=== PATIENT | female | born 1990 | race African-American/Black ===

== ENCOUNTER 2016-10-17 20:02 | Emergency (ER) | payer OTHER ==
--- NOTE | 2016-10-17 20:15 | ED PSYCHIATRIC COMPLAINT ---
History of Present Illness General Chief Complaint: Psychiatric Related Complaint Stated Complaint: BIBA FOR +SI Source: patient, EMS Exam Limitations: clinical condition Vital Signs & Intake/Output Vital Signs & Intake/Output Vital Signs Date Time Temp Pulse Resp B/P Pulse O2 O2 Flow FiO2 Ox Delivery Rate 10/18 0839 98.1 78 18 124/74 99 Room Air 10/17 2336 98.0 78 18 120/70 98 Room Air 10/17 2142 Room Air 10/17 2014 98.0 84 16 134/76 Allergies Coded Allergies: No Known Allergies (02/21/16) Reconcile Medications Gabapentin 400 MG CAPSULE 1 CAP PO TID ANXIETY (Reported) Lurasidone HCl (Latuda) 40 MG TABLET 1 TAB PO QPM BIPOLAR (Reported) Triage Nurses Notes Reviewed? yes Onset: Abrupt Duration: hour(s): Timing: single episode today Severity: moderate Associated Symptoms: anxiety, suicidal ideation HPI: 26-year-old woman history of bipolar disorder presents with suicidality and increased agitation. Per the medics, she texted an emergency crisis line. The contents of the taxed was suicidal in nature. 911 was called. The police arrived. They found her agitated and tearful. She attempted to flee. The police chased after her. The medics arrived and brought her to the emergency department. Upon arrival to the emergency department, she was agitated and tearful made overtures to flee. She denies drug use. She states that she has been taking her psychiatric medication. She declines to share what may have precipitated her outreach. (MERRILL GARCIA,THOM Avitia) Past History Travel History Traveled to [place] past 21 day No Medical History Any Pertinent Medical History? see below for history Psychiatric: bipolar disease Surgical History Surgical History: none Psychosocial History What is your primary language Uzbek Family History Hx Contributory? No (MERRILL GARCIA,THOM Avitia) Review of Systems Review of Systems Constitutional: Reports: no symptoms. EENTM: Reports: no symptoms. Respiratory: Reports: no symptoms. Cardiovascular: Reports: no symptoms. GI: Reports: no symptoms. Genitourinary: Reports: no symptoms. Musculoskeletal: Reports: no symptoms. Skin: Reports: no symptoms. Neurological/Psychological: Reports: no symptoms. Hematologic/Endocrine: Reports: no symptoms. Immunologic/Allergic: Reports: no symptoms. All Other Systems: Reviewed and Negative (MERRILL GARCIA,THOM Avitia) Physical Exam Physical Exam General Appearance: well developed/nourished, mild distress Head: atraumatic Eyes: Bilateral: PERRL, EOMI. Ears, Nose, Throat: normal pharynx, normal ENT inspection, hearing grossly normal Neck: normal inspection, supple Respiratory: normal breath sounds Cardiovascular: regular rate/rhythm Gastrointestinal: soft, non-tender Extremities: normal range of motion Neurological/Psychiatric: agitated, alert, anxious, oriented x 3 Appearance/Memory/Insight: disheveled Behavoir/Eye Contact/Speech: avoids eye contact, uncooperative Thoughts/Hallucinations: flight of ideas, tearful, cowering in corner Skin: intact, normal color, warm/dry SAD PERSONS SAD PERSONS Response Value Depression/Hopelessness? yes 2 Excessive Ethanol/Drug Use? yes 1 Rational Thinking Loss? yes 2 Social Support? has support 0 Total 5 SAD PERSONS Done? yes (MERRILL GARCIA,THOM Avitia) Progress Differential Diagnosis: drug intoxication, electrolyte abnormality, bipolar vs suicidality Plan of Care: Orders Procedure Date/time Status Regular Diet 10/18 B Active Continuous Observation Monitor 10/18 1900 Active Continuous Observation Monitor 10/18 1500 Active Continuous Observation Monitor 10/18 1100 Active Continuous Observation Monitor 10/18 0700 Active Restraint- Discontinue 10/18 0015 Active Restraint- Behavioral (Order) 10/17 2233 Active Restraint- Behavioral (Order) 10/17 2232 Complete ED CRISIS PSYCH CONSULT 10/17 2200 Active Continuous Observation Monitor 10/17 2014 Active URINE DRUGS OF ABUSE 10/17 2006 Complete URINE 10/17 2006 Complete ETHANOL 10/17 2006 Complete CBC WITHOUT DIFFERENTIAL 10/17 2006 Complete BASIC METABOLIC PANEL 10/17 2006 Complete Laboratory Tests 10/17/162038: Serum Alcohol < 10.0 10/17/162038: Anion Gap 12, Estimated GFR > 60, BUN/Creatinine Ratio 11.7, Glucose 102 H, Calcium 10.0, CBC w Diff NO MAN DIFF REQ, RBC 5.14, MCV 82.2, MCH 26.5 L, RDW 14.3, MPV 7.1 L, Gran % 47.8, Lymphocytes % 42.6, Monocytes % 4.3, Eosinophils % 4.6, Basophils % 0.7, Absolute Granulocytes 3.3, Absolute Lymphocytes 2.9, Absolute Monocytes 0.3, Absolute Eosinophils 0.3, Absolute Basophils 0, PUBS MCHC 32.2 L, Urine Opiates Screen < 100.00, Methadone Screen < 40, Barbiturate Screen < 60, Ur Phencyclidine Scrn < 6.00, Amphetamines Screen < 100, U Benzodiazepines Scrn < 85, Urine Cocaine Screen < 50, Urine Cannabis Screen > 80.00 H, Urine Test NEGATIVE Hand-Off Endorsed To: DEBBIE LEON MD Endorsed Time: 0700 Pending: consult (MERRILL GARCIA,THOM Avitia) Comments: Cleared by psychiatry for discharge (DEBBIE LEON MD) Departure Departure Clinical Impression Primary Impression: Bipolar disorder Referrals: CSOTT AUGUSTINE,DICK STERLING (PCP/Family) Comments 10/18/16, 22:50... pt evaluated by brayden... She had closed the door and rigged the sheet to make it difficult to open. She had torn the sheet to make a rope. She became agitated and belligerent. Pt placed in 4 pt restraints, given haldol 5mg im, ativan 2mg im. pt to be re-evaluated in the AM. (MERRILL GARCIA,THOM Avitia) Departure Time of Disposition: 1220 Disposition: HOME OR SELF CARE Condition: Stable Departure Forms: General Discharge Information (DEBBIE LEON MD)
[2016-10-17 20:51] LABS: ABSOLUTE BASOPHIL COUNT 0 /CUMM (0.0-0.2); ABSOLUTE EOSINOPHIL COUNT 0.3 /CUMM (0.0-0.7); ABSOLUTE GRANULOCYTE CT 3.3 /CUMM (1.4-6.5); ABSOLUTE LYMPH COUNT 2.9 /CUMM (1.2-3.4); ABSOLUTE MONOCYTE COUNT 0.3 /CUMM (0.10-0.60); BASOPHIL % 0.7 % (0.0-2.0); EOSINOPHIL % 4.6 % (0-5); GRANULOCYTE % 47.8 % (42.2-75.2); HEMATOCRIT 42.2 % (37-47); MEAN CORPUSCULAR HGB 26.5 PG (27.0-31.0); MEAN CORPUSCULAR HGB CONC 32.2 G/DL (33.0-37.0); MEAN CORPUSCULAR VOLUME 82.2 FL (81.0-99.0); MEAN PLATELET VOLUME 7.1 FL (7.4-10.4); PLATELET COUNT 458 /CUMM (130-400); RBC DISTRIBUTION WIDTH 14.3 % (11.5-14.5); RED BLOOD CELL CT 5.14 /CUMM (4.20-5.40); WHITE BLOOD CELL COUNT 6.9 /CUMM (4.8-10.8)
[2016-10-17] MEDS ORDERED: LATUDA40 M1 PO (21:41)
[2016-10-17] MEDS ORDERED: GABAPENTIN400 M2 PO (21:42)
--- NOTE | 2016-10-18 11:23 | ED PSYCH CRISIS CONSULTATION ---
Crisis Consult Basic Assessment Date of Consult: 10/18/16 Responsible Person/Accompanied By: self Insurance Authorization: Insurance #1: Insurance name: MEGAN Colon C&A Phone number: Policy number: [id number] Group number: Authorization number: ED Provider: Patient's ED Provider: MERRILL GARCIA,THOM Avitia Primary Care Physician: Patient's PCP: DICK SEVERINO PCP's Current Psychiatrist: RAO Hardin PT Chief Complaint: Psychiatric Related Complaint Patient's Quote: "I'm not suicidal. If I wanted to kill myeslf I would have." Present Illness: Pt is a 26yo female who was brought to the ED on a PEER after she "contacted a crisis line saying that she wanted to harm herself by taking pills because of domestic problems." per PEER. When police arrived to the home, pt attempted to run and she was brought to the ED. Crisis attempted to evaluate her last night, but pt was uncooperative. She tore up the bed sheets and had tied them to the door and bed and to her wrist to make it more difficult to open the door. Pt had also tied up the torn sheets into a cob wed shape and has also his some under the bed. Pt became agitated and attempted to elope from the ED and required sedation and restraints. Upon Crisis eval this morning, pt was sitting on the floor in the corner of her room with her blankets wrapped around her head and body. When asked why she was there , she stated that it was more comfortable than the bed. Pt admits that she has been feeling depressed, but denies any SI or hx of any attempts. "If I wanted to kill myself, I could have used the sheets to do that yesterday, but I was just being dramatic and doing arts and crafts." Pt reports that she does have a hx of "scratching herself sometimes" but denies that when she does this that it is a suicidal gesture, but rather for coping with her depression. Pt reports that she last "scratched" her self "a few weeks ago". Pt also reports poor appetite. Pt admits that she did contact the crisis line last night because she she has been overwhelmed and unable to sleep and wanted to find out if she could take extra medication to try to help her sleep. Pt denied and current domestic problems rather she says she has always had trouble sleeping. Pt expresses that he is very supportive. Pt is currently in [facility] pt tx and is treated for Bipolar by Jay kumar APRN and is currently on Gabapentin and latuda. Prior to [facility] Out [facility], She attended [employer]. She was initially referred to [facility] [employer] by Barb Guerrero APRN who was her previous provider. Pt denies any hx of inpt psych tx. Pt declines offer of inpt psych tx and request to discharge home. Pt's utox is positive for marijuana and pt is reportedly on Medical marijuana". Pt reportedly uses marijuana 1-3 times daily. She reported that her 1st use was age 11. [facility] is unable to collaborate with Out pt provider as it is currently Thursday and they are closed for the weekend. [facility] did speak with Pt's Stoney Barfield . He denies having any concerns for pt's safety. He explains that pt does have mood swings due to her bipolar and has been more overwhelmed as she had not slept the past 48 hours prior to the ED admit as she worked 2 overnight shifts in a row and has to watch their children during the days while he was at work. He verifies that pt did reach out to him and the crisis hotline because she wanted to know if it was safe to take extra medication so that she could get some sleep. He explains that she text the hotline, and when they called her she did not answer, because she became anxious and that's why they sent the police, which made her even more anxious and so she ran. He request pt to be discharged so that he can pick her up and take her home to rest. He stated that he will be with her and make sure she is safe and if there are any concerns he will bring her back to the ED. "Believe me. If I was afraid that she was unsafe I would ask you to admit her, but she just need to come home and rest." Case reviewed with Dr. Yañez of psychiatry who approved pt to discharge home to continue her follow-up in [facility] tx. Patient's Address: [address] [place] [address] Other Phone Number: Who Do You Live With? Family Family/Informants Interviewed: Allergies - Coded Allergies: No Known Allergies (02/21/16) Current Medications - Scheduled Medications Gabapentin 400 MG CAPSULE 1 CAP PO TID ANXIETY #90 (Reported) Entered as Reported by ALY COOL on 10/17/162141 Lurasidone HCl (Latuda) 40 MG TABLET 1 TAB PO QPM BIPOLAR #30 (Reported) Entered as Reported by ALY COOL on 10/17/162140 Laboratory Results: Laboratory Tests 10/17/162038: Serum Alcohol < 10.0 10/17/162038: Anion Gap 12, Estimated GFR > 60, BUN/Creatinine Ratio 11.7, Glucose 102 H, Calcium 10.0, CBC w Diff NO MAN DIFF REQ, RBC 5.14, MCV 82.2, MCH 26.5 L, RDW 14.3, MPV 7.1 L, Gran % 47.8, Lymphocytes % 42.6, Monocytes % 4.3, Eosinophils % 4.6, Basophils % 0.7, Absolute Granulocytes 3.3, Absolute Lymphocytes 2.9, Absolute Monocytes 0.3, Absolute Eosinophils 0.3, Absolute Basophils 0, PUBS MCHC 32.2 L, Urine Opiates Screen < 100.00, Methadone Screen < 40, Barbiturate Screen < 60, Ur Phencyclidine Scrn < 6.00, Amphetamines Screen < 100, U Benzodiazepines Scrn < 85, Urine Cocaine Screen < 50, Urine Cannabis Screen > 80.00 H, Urine Test NEGATIVE Past History Past Medical History Psychiatric: bipolar disease Past Surgical History Surgical History: 1 Psychosocial History Strengths/Capabilities: supportive , engaged in out pt tx Physical Limitations (Interventions): none reported Psychiatric Treatment History Psych Treatment Psychiatric Treatment Yes Inpatient Treatment No Outpatient Treatment Yes Location of Treatment [facility] IOP, OP Reason for Treatment Bipolar Dates of Treatment 2016 to current at Response to Treatment variable Diagnosis by History: Bipolar Substance Use/Abuse History Drug Use/Abuse Substances Used/Abused Yes Substance Used/Abused Marijuana First Use age 11 Last Used yesterday How much used/taken 1 joint How often daily For how long since age 11 Route of use smoke Substance Abuse Treatment Substance Abuse Treatment Past Substance Abuse TX Yes Inpatient Treatment No Outpatient Treatment Yes Location of Treatment IOP Reason for Treatment marijuana use Dates of Treatment 2016 Response to Treatment continues to use marijuana Current Mental Status Mental Status Orientation: Person, Place, Situation Affect: Constricted Speech: Evasive Neuro-vegetative: Appetite Decreased, Sleep Disturbance Appearance Appearance- Dress/Hygiene: wrapped in sheets sitting on the floor Behaviors Thought Process: WNL Thought Content: WNL Memory: WNL Insight: Fair SI/HI Risk Assessment Past Suicidal Ideation/Attempts Yes (ideation, no attempt) Current Suicidal Ideation/Att No Past Homicidal Ideation/Att: No Current Homicidal Ideation/Attempts No Degree of Intent: None Risk Factors: high anxiety/distress, substance abuse, poor impulse control Lethality Ratin PTSD Checklist PTSD Done? patient declined ED Management Sitter: Yes Restraints: No DSM5/PS Stressors/Medical Prob Diagnosis' (DSM 5, Stressors, Medical): Bipolar dep mod f31.32 Current GAF: 40 Departure Disposition Psych Medical Clearance Date: 10/18/16 Medically Cleared at: 1045 Time Started: 1045 Time Ended: 1115 Psychiatrist Consulted: Shannon Yañez MD Date Disposition Established: 10/18/16 Time Disposition Established: 111 Plan for Disposition - Modality: Outpatient Facility: [facility] Rationale for Disposition: Pt denies SI and her verifies her report. Pt agreeablle to continue with out pt tx Referrals SCOTT AUGUSTINE,DICK STERLING (PCP/Family)
[2016-10-18 12:23] VITALS: BP 118/74
--- NOTE | 2016-10-20 11:28 | OP PSYCH INCIDENTAL NOTE ---
See Addendum OPS Incidential Note Details: Left patient a voicemail to call back as soon as possible. She was admitted to the emergency department this weekend and required 4-point locking restraints and IM haloperidol. She was initially suicidal but was discharged with a safety plan with her . We will need to make a medication change for her, she is next due to be seen on 10/27/2016. She would likely benefit from an increase in her current lurasidone to 80mg or a return to her previous Depakote if she agrees to take it as directed on a daily basis with all the recommended monitoring. She may also benefit from return to IOP.
--- NOTE | 2016-10-22 09:50 | OP PSYCH INCIDENTAL NOTE ---
OPS Incidential Note Details: Have called both Marly Carey ([phone]) and Mary Ram ([phone]) r/t pt referral to [facility] intensive outpatient program but have yet to receive a call back. FRANK was obtained. Called patient to update them on progress and left a message.
--- NOTE | 2016-10-24 07:51 | OP PSYCH INCIDENTAL NOTE ---
OPS Incidential Note Details: Again called Mary Ram ([phone]) and left message to call back r/t referral to [facility].
== END 2016-10-18 12:30 ==
LOC: ERH 20:02
PROVIDERS: Physician Assistant Medical
DX: F31.9 Bipolar disorder, unspecified (principal)
CPT/HCPCS: 80307; 81025; 96372; G0463; G0480; J1630